=== PATIENT | female | born 1980 | race Hispanic/Latino ===

== ENCOUNTER 2021-09-14 19:38 | Emergency (ER) | payer OTHER ==
[~2021-09-14] VITALS: Ht 157.5 cm; Wt 58.5 kg
[2021-09-14] MEDS ORDERED: 0.9%NACL 1000ML 1,000 ML IV ONE (22:00)
[2021-09-14] MEDS ORDERED: PROCHLORPERAZINE 10MG/2ML INJ IV ONE (22:00)
[2021-09-14] MEDS ORDERED: DiphenhydrAMINE HCL 50 MG/ML VIAL IV ONE (22:00)
[2021-09-14 23:14] VITALS: BP 138/91
== END 2021-09-14 23:29 | disposition home or self-care (01) ==
LOC: EDH 19:38
DX: G43.909 Migraine, unspecified, not intractable, without status migrainosus (principal); Z20.822 Contact with and (suspected) exposure to COVID-19; Z90.710 Acquired absence of both cervix and uterus; Z98.890 Other specified postprocedural states
CPT/HCPCS: 87635; 87804 ×2; 96361; 96374; 96375; 99284; C9803; J0780; J1200; J7030